=== PATIENT | male | born 1990 | race Two or more races ===

== ENCOUNTER 2016-10-11 20:51 | Emergency (ER) | payer OTHER ==
[2016-10-11] MEDS ORDERED: HYDROmorphONE/DILAUDID 1 MG/ML SYR IVP PRN (20:58)
[2016-10-11] MEDS ORDERED: ONDANSETRON 4 MG/2 ML VIAL IVP PRN (20:58)
--- NOTE | 2016-10-11 21:02 | EDPHY ---
H & P Smoking Status: Former smoker Time Seen by Provider: 10/11/16 20:59 HPI/ROS: HPI: This 25 year old male who presents with Chief Complaint: Right ankle injury Location: Right Ankle Quality: Injury Duration: 30 minutes prior to arrival Signs and Symptoms: Positive swelling, positive deformity, positive pain with weight-bearing, no radiation, no numbness, No weakness Timing: Acute Severity: 10 out 10 Context: Patient was skateboarding and did well 0180 and came down twisting his right ankle. He heard a loud pop and felt immediate pain. Unable to bear weight. Tetanus up-to-date. Modifying Factors: Comment: ROS: Eyes: No blurred vision Respiratory: No shortness of breath, no cough Cardiovascular: No chest pain Gastrointestinal: No nausea, no vomiting no diarrhea Genitourinary: No dysuria Extremities: No myalgias Neurologic: No weakness, no numbness Skin: No rashes Hematologic: No bruising, no bleeding MEDICAL/SURGICAL HISTORY: Finger fracture. Appendectomy. General healthy. Does not take any regular medications. (Cristina Szymanski) Social History: Student. (Cristina Szymanski) Physical Exam: CONSTITUTIONAL: Polite and cooperative white young adult male, awake and alert , no obvious distress HEENT: Atraumatic and normocephalic, PERRL, EOMI. Tympanic membranes clear. . Oropharynx clear, no exudate and moist pink mucosa. Airway patent. No lymphadenopathy. No meningismus. Cardiovascular: Normal S1/S2, regular rate, regular rhythm, without murmur rub or gallop. PULMONARY/CHEST: Symmetrical and nontender. Clear to auscultation bilaterally Good air movement. No accessory muscle usage. ABDOMEN: Soft, nondistended, nontender, no rebound, no guarding, no peritoneal signs, no masses or organomegaly. No CVAT. EXTREMITIES: Dorsalis pedis and pedal tibialis 2/2 pulses, + right significant deformity over tibia; able to wiggle toes; good capillary refill; light touch sensation intact. no clubbing, no cyanosis or edema. NEUROLOGICAL: no focal neuro deficits. GCS 15. SKIN: Warm and dry, no erythema. no rash. Good capillary refill. (Cristina Szymanski) Constitutional: Initial Vital Signs Temperature (C) 37.0 C 10/11/16 20:55 Heart Rate 92 10/11/16 20:55 Respiratory Rate 18 10/11/16 20:55 Blood Pressure 148/64 H 10/11/16 20:55 O2 Sat (%) 95 10/11/16 20:55 O2 Delivery Mode [Post Non-Rebreather Mask Procedure 3rd] O2 Delivery Mode [Post Non-Rebreather Mask Procedure 2nd] O2 Delivery Mode [Post Non-Rebreather Mask Procedure 1st] O2 Delivery Mode [Procedural Non-Rebreather Mask 1st] O2 Delivery Mode Room Air O2 (L/minute) [Post Procedure 15 3rd] O2 (L/minute) [Post Procedure 15 2nd] O2 (L/minute) [Post Procedure 15 1st] O2 (L/minute) [Procedural 1st] 15 O2 (L/minute) 15 Allergies/Adverse Reactions: amoxicillin Allergy (Severe, Verified 05/28/15 16:35) Anaphylaxis Home Medications: Medication Instructions Recorded Albuterol Hfa Anes Only [Proair 2 puffs IH Q4-6PRN PRN #1 mdi 05/28/15 Hfa Icu (*)] Azithromycin [Zithromax tab 250 mg] 250 mg PO DAILY #6 tab 05/28/15 Guaifenesin/Codeine Phosphate 1 - 2 tsp PO Q4-6PRN PRN #120 ml 05/28/15 [Guaifenesin-Codeine Liquid] oxyCODONE/APAP 5/325 [Percocet 1 - 2 tab PO Q4H PRN #10 tab 10/11/16 5/325 (*)] Medical Decision Making - Diagnostics Imaging Results: Imaging Impressions Ankle X-Ray 10/11/16 20:55 Impression: 1. Posterolateral ankle dislocation. 2. Tiny fracture fragments in the region of the posterior malleolus. 3. Displaced angulated distal fibular fracture. Ankle X-Ray 10/11/16 21:50 Impression: 1. Interval reduction of dislocation 2. Tiny avulsion fractures of the medial malleolus. 3. 1 cm residual posterior displacement of an oblique distal fibular diaphyseal fracture with probable avulsion fracture of the lateral malleolus. 4. Additional findings as above. Procedures: Procedure: Procedural sedation. A pre-sedation evaluation was completed on the patient at 2130. Patient is an appropriate candidate for procedural sedation. The risks of the sedation were discussed with the patient. A time out was completed. The patient was sedated with propofol fall and fentanyl. The patient was monitored with continuous pulse oximetry and recreational facilities motel manager. There were no complications and no significant hypoxemia. I remained at the bedside for the sedation. The total time I spent in the procedural sedation was 20 minutes. Procedure: Dislocation reduction. The dislocation of the right ankle was reduced using traction and lateral displacement without complications. Post reduction the patient's neurovascular exam is normal.Post reduction x-ray demonstrates reduction of the joint to the anatomic position. The procedure was performed by myself. Patient placed in a posterior and sugar-tong splint by staff. I reviewed the patient. He is neurologically intact with good capillary refill and good immobility. (Franklin De Leon) ED Course/Re-evaluation: I have discussed with Dr. Dave, orthopedics. He has reviewed the x-rays. He is happy with reduction. Patient will be discharged home and follow up with him on Friday for evaluation for possible surgical repair at that time. (Franklin De Leon) X-rays, IV medication for pain control xray shows dislocation and distal fibula fracture Patient was signed out to Dr. De Leon for reduction, splint and further care. (Cristina Szymanski) Differential Diagnosis: Ankle injury including but not limited to fracture, tendon injury, contusion, muscular strain, and dislocation. (Cristina Szymanski) - Data Points Medications Given: Hydromorphone HCl (Dilaudid) 1 mg IVP Q2HRS PRN PRN Reason: Pain, Severe Unable to Take PO Stop: 10/12/16 00:01 Last Admin: 10/11/16 22:00 Dose: 1 mg Discontinued Medications Sodium Chloride (Ns) 1,000 mls @ 0 mls/hr IV ONCE ONE; Wide Open PRN Reason: Protocol Stop: 10/11/16 21:11 Last Admin: 10/11/16 21:10 Dose: 1,000 mls Sodium Chloride (Ns) 1,000 mls @ 0 mls/hr IV ONCE ONE PRN Reason: Wide Open Stop: 10/11/16 22:03 Last Admin: 10/11/16 22:03 Dose: 1,000 mls Propofol (Diprivan) 40 mg IVP EDNOW ONE Stop: 10/11/16 21:11 Last Admin: 10/11/16 22:01 Dose: 200 mg Departure - Departure Disposition: Home, Routine, Self-Care Clinical Impression: Dislocation of right ankle joint, initial encounter Fracture of fibula, distal, right, closed Qualifiers: Encounter type: initial encounter Fracture morphology: other fracture Qualified Code(s): S82.831A - Other fracture of upper and lower end of right fibula, initial encounter for closed fracture Condition: Fair Instructions: Ankle Fracture (ED), Ankle Dislocation (ED), RICE Therapy (ED) Additional Instructions: Keep your ankle elevated to the level of your heart as much as possible. You are to be nonweightbearing at all times. Apply ice for 15-20 minutes every 2-3 hours. Follow up with Dr. Dave on Friday for planning of surgical repair. Return emergency depart for increasing pain, numbness, tingling, fevers, chills , or any other concerns. Referrals: Patient,NotPresent [Primary Care Provider] - As per Instructions Prescriptions: oxyCODONE/APAP 5/325 [Percocet 5/325 (*)] 1 - 2 tab PO Q4H PRN #10 tab PRN Reason: Pain, Severe
[2016-10-11 21:03] VITALS: RESP 18
[2016-10-11] MEDS ORDERED: NS 1,000 ML IV ONE ×2 (21:10→22:02)
[2016-10-11] MEDS ORDERED: PROPOFOL 200 MG/20 ML VIAL IVP ONE (21:10)
[2016-10-11] MEDS ORDERED: fentaNYL 100 MCG/2 ML INJ ONE (21:15)
[2016-10-11] MEDS ORDERED: OXYCODONE/APAP 5/325MG PREPACK#4 BTL TAKEHOME ONE (22:41)
[2016-10-11 23:15] VITALS: BP 141/83; PULSE 69; TEMP 98.6; O2SAT 99
[2016-10-11] MEDS ORDERED: OXYCODONE/APAP 5/325 TAB PO ONE (23:26)
[2016-10-11] MEDS ORDERED: IBUPROFEN 600 MG TAB PO ONE (23:26)
== END 2016-10-11 23:38 | disposition home or self-care (01) ==
LOC: EDUNIT#
PROC: 0QSJXZZ Reposition Right Fibula, External Approach (ICD-10-PCS; principal; 2016-10-11)
DX: S82.831A Other fracture of upper and lower end of right fibula, initial encounter for closed fracture (principal); Z87.891 Personal history of nicotine dependence; X58.XXXA Exposure to other specified factors, initial encounter; Y99.8 Other external cause status; Y93.51 Activity, roller skating (inline) and skateboarding
CPT/HCPCS: 96374; J1170; J2704; J3010

== ENCOUNTER 2016-10-20 08:15 | Emergency (ER) | payer OTHER ==
[2016-10-20 08:22] VITALS: BP 129/81; PULSE 81; TEMP 97.7; O2SAT 95
[2016-10-20] MEDS ORDERED: LORazepam 2 MG/ML INJ IM ONE (08:43)
--- NOTE | 2016-10-20 08:44 | EDPHY ---
H & P Stated Complaint: pain control issues, ran out of percocet, tramadol not working Time Seen by Provider: 10/20/16 08:41 HPI/ROS: HPI: This is a 25-year-old male who presents with Chief Complaint: Uncontrolled Right ankle pain Location: Right ankle Quality: Pain Duration: 1 week Signs and Symptoms: No numbness, no radiation, no tingling, no swelling, no change of skin color Timing: Daily, intermittent Severity: Moderate Context: Patient was in our emergency on October 11, 2016 with a right ankle joint dislocation and closed fracture of the distal end of the right fibula status post this skateboarding accident. He was reduced in the ER and placed in a splint and given Percocet #10. He followed up with Dr. Scott on September in the office and given a prescription for Ultram; patient never filled this as "it does not work." He had ORIF surgery on October 16, 2016 outpatient and given Percocet # 40. He ran out of Percocet today and orthopedics office is closed on a Friday. After further questioning, patient admits that he feels extremely anxious and has a history of it but has not seen a therapist or put been placed on a psychiatric medication regimen. He lives with his girlfriend, works from home. His family lives in [place] and is unable to help. Patient does have pain; but begrudgingly admits that it has improved since surgery. Primary care provider is Caroline Little. Modifying Factors: Comment: ROS: Constitutional: No fever, no chills, no weight loss Eyes: No blurred vision Respiratory: No shortness of breath, no cough Cardiovascular: No chest pain Gastrointestinal: No nausea, no vomiting no diarrhea Genitourinary: No dysuria Extremities: No myalgias Neurologic: No weakness, no numbness Skin: No rashes Hematologic: No bruising, no bleeding Source: Patient Exam Limitations: No limitations - Personal History Current Tetanus/Diphtheria Vaccine: Yes Current Tetanus Diphtheria and Acellular Pertussis (TDAP): Yes Tetanus Vaccine Date: within 10 years - Medical/Surgical History Hx Asthma: No Hx Chronic Respiratory Disease: No Hx Diabetes: No Hx Cardiac Disease: No Hx Renal Disease: No Hx Cirrhosis: No Hx Alcoholism: No Hx HIV/AIDS: No Hx Splenectomy or Spleen Trauma: No Other PMH: Anxiety - Social History Smoking Status: Former smoker - Physical Exam Exam: CONSTITUTIONAL: Extremely anxious and tearful young adult male, awake and alert , no obvious distress HEENT: Atraumatic and normocephalic, PERRL, EOMI. Tympanic membranes clear. . Oropharynx clear, no exudate and moist pink mucosa. Airway patent. No lymphadenopathy. No meningismus. Cardiovascular: Normal S1/S2, regular rate, regular rhythm, without murmur rub or gallop. PULMONARY/CHEST: Symmetrical and nontender. Clear to auscultation bilaterally Good air movement. No accessory muscle usage. ABDOMEN: Soft, nondistended, nontender, no rebound, no guarding, no peritoneal signs, no masses or organomegaly. No CVAT. EXTREMITIES: 2/2 pulses, no deformities, no clubbing, no cyanosis or edema. Right lower leg shows short-leg cast present; toes are exposed to warm to touch ; good capillary refill; light touch sensation intact. Right knee full extension to 180 flexion to 120; no effusion; no joint line tenderness. I took off the surrounding Bakari wrap and Kerlix and palpated on the inside of the cast; skin is soft; warm to touch; no pain with palpation. NEUROLOGICAL: no focal neuro deficits. GCS 15. SKIN: Warm and dry, no erythema. no rash. Good capillary refill. Constitutional: Initial Vital Signs Temperature (C) 36.5 C 10/20/16 08:18 Heart Rate 81 10/20/16 08:18 Blood Pressure 129/81 H 10/20/16 08:18 O2 Sat (%) 95 10/20/16 08:18 O2 Delivery Mode Room Air Allergies/Adverse Reactions: amoxicillin Allergy (Severe, Verified 10/20/16 08:17) Anaphylaxis Home Medications: Medication Instructions Recorded Albuterol Hfa Anes Only [Proair 2 puffs IH Q4-6PRN PRN #1 mdi 05/28/15 Hfa Icu (*)] Azithromycin [Zithromax tab 250 mg] 250 mg PO DAILY #6 tab 05/28/15 Guaifenesin/Codeine Phosphate 1 - 2 tsp PO Q4-6PRN PRN #120 ml 05/28/15 [Guaifenesin-Codeine Liquid] oxyCODONE/APAP 5/325 [Percocet 1 - 2 tab PO Q4H PRN #10 tab 10/11/16 5/325 (*)] hydrOXYzine HCL [Hydroxyzine HCl] 50 mg PO BID PRN #12 tablet 10/20/16 traMADol 10/20/16 Medical Decision Making ED Course/Re-evaluation: No signs of neurovascular compromise/compartment syndrome Based on the number of tabs of Percocet that patient filled and instructions on the prescription; if patient is taking 1-2 tabs every 4 hours; it is consistent that he would be out of the medication today. I suspect this is more anxiety related, poor coping mechanisms and lack of support; egg caser consult Patient given Ativan in the ER with moderate relief. I explained to him that the ER will not prescribe chronic benzodiazepine medications; he will follow up with his primary care provider. He is to keep his follow-up appointment with Dr. Scott is planned. Advised him that he needs to start taking ibuprofen as well as the tramadol. And he may start to take hydroxyzine twice a day as needed for anxiety until he is seen by his primary care provider. Differential Diagnosis: Differential diagnosis includes but is not limited to ischemia; compartment syndrome; uncontrolled pain; anxiety. Departure - Departure Disposition: Home, Routine, Self-Care Clinical Impression: Status post surgical manipulation of ankle joint, Status post open reduction with internal fixation of fracture, Anxiety Condition: Good Instructions: RICE Therapy (ED), Ankle Fracture (ED), Ankle Dislocation (ED) Additional Instructions: Call primary care provider, Caroline Little, on Friday and make an appointment to be seen as soon as possible to discuss depression and anxiety Referrals: Gil Scott MD [Medical Doctor] - 1-2 days without fail (Call for follow- up appointment. ) Prescriptions: hydrOXYzine HCL [Hydroxyzine HCl] 50 mg PO BID PRN #12 tablet PRN Reason: Anxiety
[2016-10-20] MEDS ORDERED: LORazepam 1 MG TAB PO ONE (08:46)
[2016-10-20] MEDS ORDERED: OXYCODONE/APAP 5/325 TAB PO ONE (09:35)
--- NOTE | 2016-10-20 15:18 | ASDISCHSUM ---
Discharge Information Plan Status:Home with No Needs Medically Cleared to Leave:10/20/2016 Discharge Date:10/20/2016 09:52 AM CM D/C Disposition:Home, Routine, Self-Care ADT D/C Disposition:Home, Routine, Self-Care Projected Discharge Date:10/20/2016 09:52 AM Transportation at D/C:Friend Discharge Delay Reason: Follow-Up Date:10/20/2016 09:52 AM Discharge Slot: Final Diagnosis: Placement Information Patient Contact Information Contact Name:NORRISNONE Relationship: Address: Home Phone: Work Phone: City: Alternate Phone: State/[employer] Code: Email: Financial Information Financial Class:HMO and PPO Plans Primary Plan Desc:[employer] Primary Plan Number:[id number] Secondary Plan Desc: Secondary Plan Number: Assessment Information Intervention Information
== END 2016-10-20 09:52 | disposition home or self-care (01) ==
DX: F41.9 Anxiety disorder, unspecified (principal); Z87.81 Personal history of (healed) traumatic fracture; Z87.891 Personal history of nicotine dependence; Z96.661 Presence of right artificial ankle joint

== ENCOUNTER 2016-11-04 01:46 | Inpatient (IN) | payer OTHER ==
--- NOTE | 2016-11-04 01:50 | EDPHY ---
H & P HPI/ROS: HPI CHIEF COMPLAINT: Altered mental status HISTORY OF PRESENT ILLNESS: This patient 26-year-old male, who presents emergency room by private vehicle with his girlfriend for altered mental status. Reported by his girlfriend that over the past 2 days he has had persistent nausea vomiting diarrhea. He has been on long course of narcotic pain medicine for recent ankle fracture dislocation. He initially was prescribed 40 tabs of narcotic hydrocodone and went through all 40 tabs. He then had surgery on his ankle and got another 40 tabs. He is now went through close to 40 of them his girlfriend thinks he may have 10-15 left. Abruptly 4 days ago to 5 days ago stop taking his narcotic pain medicine. He took 1 dose over the past few days possibly a dose a day. He now presents emergency room dripping severe diaphoresis, with persistent nausea vomiting. He states for the past 2 days he has been in bed rather ill, persistent nausea vomiting. Denies any abdominal pain. He now presents emergency room confused. Patient denies drug use. Alcohol use. Denies taking any [id number] medications. Denies trauma. Denies fever. Distally patient reports taking tramadol. Past Medical History: Denies significant medical history Past Surgical History: Recent right ankle surgery Social History: Denies alcohol or drugs. Occasional marijuana Family History: Noncontributory ROS REVIEW OF SYSTEMS: A comprehensive 10 point review of systems is otherwise negative aside from elements mentioned in the history of present illness. Exam Constitutional confused, alert and oriented x2, diaphoretic, triage nursing summary reviewed, vital signs reviewed, awake/alert. Eyes normal conjunctivae and sclera, EOMI, PERRLA. Pupils are 6 mm equal minimally reactive to light. HENT normal inspection, atraumatic, moist mucus membranes, no epistaxis, neck supple/ no meningismus, no raccoon eyes. Respiratory clear to auscultation bilaterally, normal breath sounds, no respiratory distress, no wheezing. Cardiovascular rate normal, regular rhythm, no murmur, no edema, distal pulses normal. Gastrointestinal soft, non-tender, no rebound, no guarding, normal bowel sounds, no distension, no pulsatile mass. Genitourinary no CVA tenderness. Musculoskeletal no midline vertebral tenderness, full range of motion, no calf swelling, no tenderness of extremities, no meningismus, good pulses, neurovascularly intact. Skin diaphoretic. Neurologic no rigidity, no clonus, no stiffness, awake, alert and oriented x 2 , AAOx2, moves all 4 extremities equally, motor intact, sensory intact, CN II- XII intact, normal cerebellar, normal vision, normal speech. Psychiatric normal mood/affect. Heme/Lymph/Immune no lymphadenopathy. Differential Diagnosis: Includes but is not limited to in a particular order drug toxication, opiate withdrawal, severe electrolyte disturbance, severe dehydration, drug toxicity, drug overdose, intracranial bleed, stroke, serotonin syndrome Medical Decision Making: Plan for this patient he is confused, severely diuretic, most likely going through significant opiate withdrawal. Proceed with IV establishment with blood work, check blood work, gentle IV hydration until I know his sodium level, CT scan head without contrast for altered mental status, EKG, tox labs, Tylenol, salicylate, alcohol, drug screen Re-evaluation: EKG interpretation by me on record in [employer] system. Impression time of EKG 2:17 a.m., this is sinus rhythm rate of 57 abnormal T-waves in V1 V2 V3 V4 V5 V6. T-wave abnormality to [address] depression to [address] scan of the the head without IV contrast The results of the study are negative for acute traumatic injury or bleed or stroke. The study was read by Dr. Young I viewed the images myself on the PACS system. 0235AM: Spoke with girlfriend at bedside for extensive period of time. She reports over the past 48 hours he has been having persistent vomiting. Very visual dreams. Almost to the point that he is hallucinating. Also has had diarrhea. Abruptly stopped his opiates 4-5 days ago. Has been taking tramadol. Exam here I do not appreciate any signs of serotonin syndrome he is not tachycardic he is not hypertensive he is not rigid he does not have clonus. However he does have diaphoresis and large pupils. Piloerection on exam. 0407AM: Re-examination this time. He is not vomiting. His diaphoresis has resolved. He denies any complaints specifically denies neck pain or headache. Denies stiff neck. Denies abdominal pain chest pain or shortness of breath. However re-examination he still very confused. He tells me the date is 1975. He is unable to identify the present. Girlfriend at bedside states that this is not him. He has a nonfocal neurological exam except for confusion. Reviewed given to a conversation with him he starts getting off topic in talks about things that do not make sense. There is no jumbled words. There is no mumbling. He just does not make sense. I do not feel that he needs a lumbar puncture. He has no evidence of meningitis. He has no stiff neck no fever no headache. He otherwise appears well. He does tell me that the president is "orange" but cannot identify the name. At this time I do not have a great reason for his encephalopathy. Will be admitted to the hospital for altered mental status most likely opiate withdrawal and encephalopathy. No evidence this patient has an active infection. 0454: Patient's drug screen positive for cocaine, benzos and marijuana. This most likely explanation of his symptoms and confusion. I did ask about drugs multiple times when he arrived here in states that he denies drugs. However now he admits to doing cocaine Friday. He was still be admitted for altered mental status polysubstance abuse encephalopathy dehydration. Source: Patient - Personal History Tetanus Vaccine Date: within 10 years - Medical/Surgical History Hx Asthma: No Hx Chronic Respiratory Disease: No Hx Diabetes: No Hx Cardiac Disease: No Hx Renal Disease: No Hx Cirrhosis: No Hx Alcoholism: No Hx HIV/AIDS: No Hx Splenectomy or Spleen Trauma: No Other PMH: Anxiety - Social History Smoking Status: Former smoker Constitutional: Initial Vital Signs Temperature (C) 37.1 C 11/04/16 02:01 Heart Rate 80 11/04/16 02:01 Respiratory Rate 16 11/04/16 02:01 Blood Pressure 130/93 H 11/04/16 02:01 O2 Sat (%) 96 11/04/16 02:01 O2 Delivery Mode Room Air Allergies/Adverse Reactions: amoxicillin Allergy (Severe, Verified 11/04/16 02:03) Anaphylaxis Home Medications: Medication Instructions Recorded hydrOXYzine HCL [Hydroxyzine HCl] 50 mg PO BID PRN #12 tablet 10/20/16 traMADol [Ultram 50 mg (*)] 50 mg PO Q4 PRN 10/20/16 Ondansetron HCl [Zofran] 4 mg PO Q6H PRN 11/04/16 oxyCODONE IR [Oxycodone Ir (*)] 5 - 10 mg PO Q4-6PRN PRN 11/04/16 Medical Decision Making - Data Points Laboratory Results: Laboratory Results 11/04/16 02:00 11/04/16 02:00 Medications Given: Sodium Chloride (Ns) 1,000 mls @ 150 mls/hr IV CONT REMA Stop: 05/03/17 03:44 Last Admin: 11/04/16 17:20 Dose: 1,000 mls Lorazepam (Ativan Injection) 1 mg IVP Q6 PRN PRN Reason: Agitation Stop: 05/03/17 05:01 Last Admin: 11/04/16 11:05 Dose: 1 mg Lorazepam (Ativan) 1 mg PO Q4HRS PRN PRN Reason: Anxiety, Able to Take PO Stop: 05/03/17 16:58 Last Admin: 11/04/16 22:30 Dose: 1 mg Ondansetron HCl (Zofran) 4 mg IVP Q4HRS PRN PRN Reason: Nausea/Vomiting, Can't Take PO Stop: 05/03/17 03:29 Last Admin: 11/04/16 12:34 Dose: 4 mg Discontinued Medications Sodium Chloride (Ns) 1,000 mls @ 0 mls/hr IV EDNOW ONE; Wide Open PRN Reason: Protocol Stop: 11/04/16 02:03 Last Admin: 11/04/16 02:05 Dose: 1,000 mls Sodium Chloride (Ns) 1,000 mls @ 0 mls/hr IV ONCE ONE PRN Reason: Wide Open Stop: 11/04/16 04:04 Last Admin: 11/04/16 04:06 Dose: 1,000 mls Magnesium Sulfate (Magnesium Sulf 2 Gm (Premix)) 50 mls @ 50 mls/hr IV ONCE ONE Stop: 11/04/16 05:03 Last Admin: 11/04/16 04:46 Dose: 50 mls Ondansetron HCl (Zofran) 4 mg IVP EDNOW ONE Stop: 11/04/16 02:03 Last Admin: 11/04/16 02:14 Dose: 4 mg Departure - Departure Disposition: [facility] Clinical Impression: Dehydration, Opiate withdrawal, Encephalopathy acute, Polysubstance abuse Altered mental status Qualifiers: Altered mental status type: unspecified Qualified Code(s): R41.82 - Altered mental status, unspecified Condition: Fair
[2016-11-04] MEDS ORDERED: NS 1,000 ML IV ONE ×2 (02:02→04:03)
[2016-11-04] MEDS ORDERED: ONDANSETRON 4 MG/2 ML VIAL IVP ONE (02:02)
--- NOTE | 2016-11-04 02:19 | CPEKG ---
Heart Rate: 57 RR Interval: 1053 P-R Interval: 132 QRSD Interval: 106 QT Interval: 492 QTC Interval: 479 P [place]: 80 QRS [place]: 75 T Wave [place]: -85 EKG Severity - ABNORMAL ECG - EKG Impression: SINUS RHYTHM EKG Impression: PROBABLE LVH WITH SECONDARY REPOL ABNRM EKG Impression: INFERIOR Q WAVES, PROBABLY NORMAL VARIATION EKG Impression: ABNORMAL T, PROBABLE ISCHEMIA, WIDESPREAD EKG Impression: BORDERLINE PROLONGED QT INTERVAL Electronically Signed By: Arie Wang 04-Nov-2016 07:00:51
[2016-11-04 02:23] LABS: % IMMATURE GRANULYOCYTES 0.2 % (0.0-1.1); ABSOLUTE IMMATURE GRANULOCYTES 0.03 10^3/uL (0.00-0.10); ADD DIFF? NO; ADD MORPH? NO; ADD SCAN? NO; ATYPICAL LYMPHOCYTE FLAG 0 (0-99); FRAGMENT RBC FLAG 0 (0-99); HEMATOCRIT 46.8 % (40.0-51.0); HEMOGLOBIN 16.8 g/dL (13.7-17.5); LEFT SHIFT FLG 0 (0-99); LIPEMIA HEMOLYSIS FLAG 90 (0-99); MEAN CELL HEMOGLOBIN 30.6 pg (27.9-34.1); MEAN CELL HEMOGLOBIN CONCENTR. 35.9 g/dL (32.4-36.7); MEAN CELL VOLUME 85.2 fL (81.5-99.8); MEAN PLATELET VOLUME 9.4 fL (8.7-11.7); PLATELET CLUMPS FLAG 30 (0-99); PLATELET COUNT 495 10^3/uL (150-400); RED BLOOD CELL COUNT 5.49 10^6/uL (4.40-6.38); RED CELL DISTRIBUTION WIDTH 12.1 % (11.5-15.2)
[2016-11-04 02:36] LABS: ALANINE AMINOTRANSFERASE 33 IU/L (21-72); ALBUMIN 5.2 g/dL (3.5-5.0); ALKALINE PHOSPHATASE 83 IU/L (38-126); ANION GAP 22 mEq/L (8-16); ASPARTATE AMINOTRANSFERASE 34 IU/L (17-59); BILIRUBIN,TOTAL 1.5 mg/dL (0.1-1.4); BILIRUBIN-CONJUGATED 0.3 mg/dL (0.0-0.5); BILIRUBIN-UNCONJUGATED 1.2 mg/dL (0.0-1.1); CALCIUM 11.4 mg/dL (8.5-10.4); CARBON DIOXIDE 19 mEq/l (22-31); CHLORIDE 102 mEq/L (97-110); CREATININE 1.4 mg/dL (0.7-1.3); ETHANOL SERUM < 10 mg/dL (0-10); GLOMERULAR FILTRATION RATE > 60; GLUCOSE 138 mg/dL (70-100); POTASSIUM 3.7 mEq/L (3.5-5.2); SALICYLATE < 1.0 mg/dL (2.0-20.0); SODIUM 143 mEq/L (134-144); TOTAL PROTEIN 9.2 g/dL (6.3-8.2)
[2016-11-04] MEDS ORDERED: ACETAMINOPHEN 325 MG TAB PO PRN (03:30)
[2016-11-04] MEDS ORDERED: ONDANSETRON 4 MG/2 ML VIAL IVP PRN (03:30)
[2016-11-04] MEDS ORDERED: ONDANSETRON DISINTEGRATING 4 MG TAB PO PRN (03:30)
[2016-11-04 03:39] LABS: MAGNESIUM 1.5 mg/dL (1.6-2.3)
[2016-11-04 03:50] LABS: TROPONIN I < 0.012 ng/mL (0.000-0.034)
[2016-11-04] MEDS ORDERED: MAGNESIUM SULF 2 GM/WATER 50 ML IV ONE (04:04)
[2016-11-04] MEDS ORDERED: PROTOCOL MAGNESIUM 1 DOSE IV PRN (04:05)
[2016-11-04 04:37] LABS: COLOR YELLOW; LEUKOCYTE ESTERASE,URINE NEGATIVE (NEGATIVE); NITRITE,URINE NEGATIVE (NEGATIVE)
[2016-11-04 04:43] LABS: MUCUS TRACE /lpf (NONE-1+)
[2016-11-04] MEDS ORDERED: LORazepam 2 MG/ML INJ IVP PRN (05:02)
--- NOTE | 2016-11-04 05:42 | GHP ---
[f rep st] HISTORY AND PHYSICAL DATE OF ADMISSION: 11/04/2016 CHIEF COMPLAINT: Acute encephalopathy. HISTORY OF PRESENT ILLNESS: A 26-year-old male with a past medical history of anxiety and depression, who was brought in by his girlfriend with confusion. She was concerned it had something to do with his abrupt stop of pain medications. He was seen in the ER on 10/11/2016, with a right ankle dislocation that was reduced. At that time, he was prescribed 40 of Percocet. He underwent ORIF on 10/[address] Scott. He was refilled a prescription for Percocet and tramadol the Friday before weekend. It is unclear how many he has been taking, but he has taken none in the last 2 days. He began having vomiting on Friday morning, felt hot and sick. Friday evening, he was doing okay, ate a sandwich. He developed some diarrhea earlier that day. On Friday, his girlfriend was at work and gone all day, but roommate said he was acting weird and throwing up all day. Here, in the emergency room, he denies any alcohol or illicit drug use. No fevers. No chest pain, no shortness of breath. No headaches, no vision changes. REVIEW OF SYSTEMS: I completed a 10-point review of systems and negative, except as noted in HPI. PAST MEDICAL HISTORY: Anxiety and depression, not treated. PAST SURGICAL HISTORY: ORIF of right ankle 10/16/2016. Also, appendectomy. SOCIAL HISTORY: Lives in [place] with his girlfriend. Admits to smoking marijuana. No alcohol. No tobacco. Denied other illicits during my interview. FAMILY HISTORY: No coronary artery disease. No sudden cardiac . MEDICATIONS: Tramadol, Percocet, last taken 2 days ago, hydroxyzine. ALLERGIES: Amoxicillin, anaphylaxis. PHYSICAL EXAMINATION: Temperature 37.1, blood pressure 142/79, heart rate 60, respirations 16, 97% on room air. GENERAL: Well-appearing male, who is sitting up on bed, no acute distress, smiling. HEENT: Dilated pupils, but reactive. EOMI. Oropharynx clear. No exudate or erythema. CV is regular. No murmurs, gallops, or rubs. LUNGS: Clear. No crackles. Abdomen is soft, nontender, nondistended. Positive bowel sounds. : No suprapubic tenderness. MUSCULOSKELETAL: Right ankle incision is clean, dry, healing well. No evidence of infection. NEUROLOGIC: 2 through 12 intact. Following commands. PSYCHIATRIC: Tangential, not answering questions appropriately. Alert to sitting only, not date, year. LABS: WBC is 13, hemoglobin 16, hematocrit 40, platelets 495. Sodium 143, potassium 3.7, chloride 102, carbon dioxide 22, anion gap 22, creatinine is 1.4 , glucose 138, calcium is 11.4. Mag is 1.5. Total bilirubin is 1.5. Troponin less than 0.012. Total protein is 9.2, albumin is 5.2, lipase 75. Lactate was 4.6, now 1.6. Negative UA. Urine tox positive for benzos, cocaine, marijuana. Negative salicylate and Tylenol. CT head: Negative for acute bleed. Chest x-ray: Good expansion. No evidence of effusion or opacity. EKG is personally reviewed by me. Diffuse ST depression with re-polar abnormalities. ASSESSMENT AND PLAN: 1. Acute toxic encephalopathy: due to cocaine and benzodiazepine ingestion. After repeat interview, he said he used on Friday night. No evidence of infection. He is afebrile. 2. Polysubstance abuse: Positive for marijuana/ benzos/ cocaine. The patient was counseled on cessation. He will be monitored on telemetry to ensure no arrhythmia. 3. Acute kidney injury: Secondary to dehydration with vomiting, diarrhea, as well as cocaine ingestion. Hydrate and repeat. CK pending. 4. Lactic acidosis secondary to diarrhea, dehydration, and cocaine ingestion. Resolved with IV fluids. 5. Leukocytosis, likely due to stress inflammation. UA is negative. No evidence of pneumonia. Afebrile. 6.Hypomagnesium: on protocol 7. Right ankle fracture: Status post surgery 10/16. Healing well. 8. Abnormal EKG: diffuse ST depressions with repol changes. Negative trop, no CP. Due to cocaine. 8. Deep venous thrombosis prophylaxis: Low risk. DIET: Regular. DISPOSITION: The patient warrants observation admission, given acute toxic encephalopathy requiring telemetry to ensure no arrhythmia. /[id number]/MODL MTDD
[2016-11-04 06:53] LABS: HEMATOCRIT 38.4 % (40.0-51.0); HEMOGLOBIN 13.5 g/dL (13.7-17.5); MEAN CELL HEMOGLOBIN 30.4 pg (27.9-34.1); MEAN CELL HEMOGLOBIN CONCENTR. 35.2 g/dL (32.4-36.7); MEAN CELL VOLUME 86.5 fL (81.5-99.8); RED BLOOD CELL COUNT 4.44 10^6/uL (4.40-6.38); RED CELL DISTRIBUTION WIDTH 12.3 % (11.5-15.2)
[2016-11-04 07:17] LABS: ALANINE AMINOTRANSFERASE 29 IU/L (21-72); ALKALINE PHOSPHATASE 62 IU/L (38-126); ANION GAP 15 mEq/L (8-16); ASPARTATE AMINOTRANSFERASE 22 IU/L (17-59); CALCIUM 9.4 mg/dL (8.5-10.4); CARBON DIOXIDE 19 mEq/l (22-31); CHLORIDE 109 mEq/L (97-110); CREATININE 1.2 mg/dL (0.7-1.3); GLOMERULAR FILTRATION RATE > 60; GLUCOSE 124 mg/dL (70-100); MAGNESIUM 3.9 mg/dL (1.6-2.3); POTASSIUM 3.8 mEq/L (3.5-5.2); SODIUM 143 mEq/L (134-144); TOTAL PROTEIN 6.7 g/dL (6.3-8.2)
--- NOTE | 2016-11-04 08:37 | CPEKG ---
Heart Rate: 57 RR Interval: 1053 P-R Interval: 128 QRSD Interval: 90 QT Interval: 472 QTC Interval: 460 P Brickeys: 68 QRS Brickeys: 75 T Wave Brickeys: -75 EKG Severity - ABNORMAL ECG - EKG Impression: SINUS RHYTHM EKG Impression: PROBABLE LEFT VENTRICULAR HYPERTROPHY EKG Impression: INFERIOR Q WAVES, PROBABLY NORMAL VARIATION EKG Impression: ABNORMAL T, PROBABLE ISCHEMIA, WIDESPREAD Electronically Signed By: Fabiola Suero 04-Nov-2016 08:51:48
[2016-11-04] MEDS: NS 1,000 ML IV SCH ×2 (09:06→17:20)
[2016-11-04 09:21] LABS: ANION GAP 12 mEq/L (8-16); CALCIUM 9.8 mg/dL (8.5-10.4); CARBON DIOXIDE 22 mEq/l (22-31); CHLORIDE 108 mEq/L (97-110); CREATININE 1.3 mg/dL (0.7-1.3); GLOMERULAR FILTRATION RATE > 60; GLUCOSE 114 mg/dL (70-100); POTASSIUM 4.3 mEq/L (3.5-5.2); SODIUM 142 mEq/L (134-144)
--- NOTE | 2016-11-04 16:58 | HOSPPROG ---
Hospitalist Progress Note Assessment/Plan: # acute toxic encephalopathy- suspected secondary to polysubstance abuse and withdrawal Urine drug screen positive for cocaine, marijuana, benzodiazepine - known recent use of higher dose narcotics telemetry (personally reviewed and interpreted) sinus rhythm 80s to 90s- oxygen saturations 95% on room air - continue close monitoring - p.r.n. Ativan for agitation # polysubstance abuse- can not meaningfully discussed with the patient at this time is remains quite encephalopathic - case management consultation after clears # acute kidney injury- presumed secondary to dehydration Creatinine 1.4 at presentation - continue IV fluids - recheck in a.m. # subacute right ankle dislocation- status post surgical intervention - nonweightbearing on his right foot - boot in place - avoiding pain medications as able # prophylaxis Lovenox # diet regular # disposition greater than 2 midnights as requiring high-level monitoring and supportive care I have discussed the case with the RN we will continue with sitter support and p.r.n. benzodiazepines for agitation Subjective: Denies pain Objective: Vital Signs Temp Pulse Resp BP Pulse Ox 36.7 C 76 17 91/64 L 95 11/04/16 07:53 11/04/16 16:07 11/04/16 16:07 11/04/16 16:07 11/04/16 16:07 Laboratory Results 11/04/16 06:35 11/04/16 08:44 11/03/16 11/04/16 11/05/16 05:59 05:59 05:59 Intake Total 2500 Output Total 1250 Balance 1250 - Physical Exam Constitutional: appears nourished Eyes: anicteric sclera Ears, Nose, Mouth, Throat: dry mucous membranes Cardiovascular: regular rate and rhythym Respiratory: no respiratory distress, no rales or rhonchi Gastrointestinal: normoactive bowel sounds Genitourinary: no bladder fullness Skin: warm Musculoskeletal: other (Right foot in a boot) Neurologic: No AAOx3 Psychiatric: encephalopathic Lymph, Heme, Immunologic: no cervical LAD ICD10 Worksheet Patient Problems: Problems Problem Status Onset Altered mental status Acute Dehydration Acute Encephalopathy acute Acute Opiate withdrawal Acute Polysubstance abuse Acute
--- NOTE | 2016-11-04 17:03 | ASMTCMCOM ---
CM Note CM Note Notes: C/M consult requested for pt once he clears. He is currently encephalopathic due to suspect polysubstance abuse. C/M to follow. Date Signed: 11/04/2016 05:03 PM Electronically Signed By:Kylie Gamboa LCSW
[2016-11-04] MEDS: LORazepam 1 MG TAB PO PRN ×2 (17:18→22:30)
[2016-11-05 04:57] LABS: ANION GAP 11 mEq/L (8-16); CALCIUM 9.5 mg/dL (8.5-10.4); CARBON DIOXIDE 18 mEq/l (22-31); CHLORIDE 111 mEq/L (97-110); CREATININE 1.5 mg/dL (0.7-1.3); GLOMERULAR FILTRATION RATE 57; GLUCOSE 102 mg/dL (70-100); MAGNESIUM 2.1 mg/dL (1.6-2.3); POTASSIUM 3.5 mEq/L (3.5-5.2); SODIUM 140 mEq/L (134-144)
[2016-11-05] MEDS: NS 1,000 ML IV SCH (09:52)
--- NOTE | 2016-11-05 11:51 | PDCONSULT ---
[employer] Hand Note: Assessment/Plan: JOYA: Pt likely has some ATN, in setting of volume loss with N/V/D prior to presentation, possibly also vasospasms from cocaine use. Renal US with no concerning findings. - Will recheck UA, urine sodium, urine Cr, urine protein, urine eos. - No need for HD. - Will change IVFs to 1/2NS. - Avoid hypotension, MOM, morphine, demerol, contrast, aminoglycosides, fleets , NSAIDs, ACEI/ARBs, and other nephrotoxins. - Will continue to monitor. Metabolic acidosis: likely due to JOYA, will continue to monitor for now. Hypokalemia: K 3.5, will give a KCl 20meq x1 and continue to monitor. Thank you for the interesting consult. Nephrology will continue to follow, please call if you have any additional questions or concerns. H & P Stated Complaint: AMS HPI/ROS: HPI: Mr. Friedman is a 26 yo M with h/o anxiety who presented yesterday with confusion. He had a R ankle dislocated end of last month and then underwent ORIF on 10/16. He refilled a script for Percocet and tramadol before weekend and ran out two days before his presentation this time, unclear how much he had been taking before that, also was taking something for anxiety. He also had recent cocaine use, whick pt admits to and also is UDS positive for cocaine. He had some N/V/D on Friday but seemed to improve, but then again worsened on Friday. His Cr on presentation was 1.4, got IVFs and seemed to initially improve but then Cr up to 1.5 today, prompting consultation. Pt denies any N/V/D currently, feels fine except for ankle pain. ROS: Positive per HPI, rest of 10-point ROS negative - Personal History Current Tetanus/Diphtheria Vaccine: Yes Current Tetanus Diphtheria and Acellular Pertussis (TDAP): Yes Tetanus Vaccine Date: within 10 years - Medical/Surgical History Hx Asthma: No Hx Chronic Respiratory Disease: No Hx Diabetes: No Hx Cardiac Disease: No Hx Renal Disease: No Hx Cirrhosis: No Hx Alcoholism: No Hx HIV/AIDS: No Hx Splenectomy or Spleen Trauma: No Other PMH: Anxiety - Family History Significant Family History: No: Renal disease - Social History Smoking Status: Former smoker Drug Use: Cocaine - Physical Exam Exam: General: alert and oriented, no acute distress Eyes; EOMI, PERRL OP: Clear, MMM Neck: supple, no thyromegaly CV: RRR, +2/4 radial and dorsalis pedis pulses, no peripheral edema Resp: CTA bilat, nonlabored respirations on RA Abd: Soft, NT/ND Neuro: CN II-XII grossly intact, no asterixis Psych: cooperative appropriate mood and affect Skin: C/D/I, no rash Constitutional: Initial Vital Signs Temperature (C) 37.1 C 11/04/16 02:01 Heart Rate 80 11/04/16 02:01 Respiratory Rate 16 11/04/16 02:01 Blood Pressure 130/93 H 11/04/16 02:01 O2 Sat (%) 96 11/04/16 02:01 O2 Delivery Mode Room Air Allergies/Adverse Reactions: amoxicillin Allergy (Severe, Verified 11/04/16 02:03) Anaphylaxis Home Medications: Medication Instructions Recorded hydrOXYzine HCL [Hydroxyzine HCl] 50 mg PO BID PRN #12 tablet 10/20/16 traMADol [Ultram 50 mg (*)] 50 mg PO Q4 PRN 10/20/16 Ondansetron HCl [Zofran] 4 mg PO Q6H PRN 11/04/16 oxyCODONE IR [Oxycodone Ir (*)] 5 - 10 mg PO Q4-6PRN PRN 11/04/16 Lab and Imaging 11/04/16 06:35 11/05/16 03:47 WBC 10.08 10^3/uL (3.80-9.50) H 11/04/16 06:35 RBC 4.44 10^6/uL (4.40-6.38) 11/04/16 06:35 Hgb 13.5 g/dL (13.7-17.5) L 11/04/16 06:35 Hct 38.4 % (40.0-51.0) L 11/04/16 06:35 MCV 86.5 fL (81.5-99.8) 11/04/16 06:35 MCH 30.4 pg (27.9-34.1) 11/04/16 06:35 MCHC 35.2 g/dL (32.4-36.7) 11/04/16 06:35 RDW 12.3 % (11.5-15.2) 11/04/16 06:35 Plt Count 335 10^3/uL (150-400) D 11/04/16 06:35 MPV 9.4 fL (8.7-11.7) 11/04/16 02:00 Neut % (Auto) 76.1 % (39.3-74.2) H 11/04/16 02:00 Lymph % (Auto) 13.1 % (15.0-45.0) L 11/04/16 02:00 Glascock % (Auto) 10.4 % (4.5-13.0) 11/04/16 02:00 Eos % (Auto) 0.0 % (0.6-7.6) L 11/04/16 02:00 Baso % (Auto) 0.2 % (0.3-1.7) L 11/04/16 02:00 Nucleat RBC Rel Count 0.0 % (0.0-0.2) 11/04/16 02:00 Absolute Neuts (auto) 9.91 10^3/uL (1.70-6.50) H 11/04/16 02:00 Absolute Lymphs (auto) 1.71 10^3/uL (1.00-3.00) 11/04/16 02:00 Absolute Monos (auto) 1.36 10^3/uL (0.30-0.80) H 11/04/16 02:00 Absolute Eos (auto) 0.00 10^3/uL (0.03-0.40) L 11/04/16 02:00 Absolute Basos (auto) 0.03 10^3/uL (0.02-0.10) 11/04/16 02:00 Absolute Nucleated RBC 0.00 10^3/uL (0-0.01) 11/04/16 02:00 Immature Gran % 0.2 % (0.0-1.1) 11/04/16 02:00 Immature Gran # 0.03 10^3/uL (0.00-0.10) 11/04/16 02:00 VBG Lactic Acid 1.6 mmol/L (0.7-2.1) D 11/04/16 03:30 Sodium 140 mEq/L (134-144) 11/05/16 03:47 Potassium 3.5 mEq/L (3.5-5.2) 11/05/16 03:47 Chloride 111 mEq/L (97-110) H 11/05/16 03:47 Carbon Dioxide 18 mEq/l (22-31) L 11/05/16 03:47 Anion Gap 11 mEq/L (8-16) 11/05/16 03:47 BUN 13 mg/dL (7-23) 11/05/16 03:47 Creatinine 1.5 mg/dL (0.7-1.3) H 11/05/16 03:47 Estimated GFR 57 11/05/16 03:47 Glucose 102 mg/dL (70-100) H 11/05/16 03:47 Calcium 9.5 mg/dL (8.5-10.4) 11/05/16 03:47 Phosphorus 4.3 mg/dL (2.5-4.5) 11/04/16 02:00 Magnesium 2.1 mg/dL (1.6-2.3) 11/05/16 03:47 Total Bilirubin 1.0 mg/dL (0.1-1.4) 11/04/16 06:35 Conjugated Bilirubin 0.3 mg/dL (0.0-0.5) 11/04/16 02:00 Unconjugated Bilirubin 1.2 mg/dL (0.0-1.1) H 11/04/16 02:00 AST 22 IU/L (17-59) 11/04/16 06:35 ALT 29 IU/L (21-72) 11/04/16 06:35 Alkaline Phosphatase 62 IU/L (38-126) 11/04/16 06:35 Creatine Kinase 85 IU/L (0-224) 11/04/16 06:35 Troponin I < 0.012 ng/mL (0.000-0.034) 11/04/16 02:00 Total Protein 6.7 g/dL (6.3-8.2) D 11/04/16 06:35 Albumin 4.0 g/dL (3.5-5.0) 11/04/16 06:35 Lipase 75 IU/L (23-300) 11/04/16 02:00 Urine Color YELLOW 11/04/16 04:15 Urine Appearance CLEAR 11/04/16 04:15 Urine pH 8.0 (5.0-7.5) H 11/04/16 04:15 Ur Specific [place] 1.033 (1.002-1.030) H 11/04/16 04:15 Urine Protein 1+ (NEGATIVE) H 11/04/16 04:15 Urine Ketones 1+ (NEGATIVE) H 11/04/16 04:15 Urine Blood NEGATIVE (NEGATIVE) 11/04/16 04:15 Urine Nitrate NEGATIVE (NEGATIVE) 11/04/16 04:15 Urine Bilirubin NEGATIVE (NEGATIVE) 11/04/16 04:15 Urine Urobilinogen NEGATIVE EU (0.2-1.0) 11/04/16 04:15 Ur Leukocyte Esterase NEGATIVE (NEGATIVE) 11/04/16 04:15 Urine RBC 1-3 /hpf (0-3) 11/04/16 04:15 Urine WBC 1-3 /hpf (0-3) 11/04/16 04:15 Ur Epithelial Cells NONE SEEN /lpf (NONE-1+) 11/04/16 04:15 Urine Mucus TRACE /lpf (NONE-1+) 11/04/16 04:15 Urine Glucose NEGATIVE (NEGATIVE) 11/04/16 04:15 Salicylates < 1.0 mg/dL (2.0-20.0) L 11/04/16 02:00 Urine Opiates Screen NEGATIVE (NEGATIVE) 11/04/16 04:15 Acetaminophen < 10 mcg/mL (10-30) L 11/04/16 02:00 Urine Barbiturates NEGATIVE (NEGATIVE) 11/04/16 04:15 Ur Phencyclidine Scrn NEGATIVE (NEGATIVE) 11/04/16 04:15 Ur Amphetamine Screen NEGATIVE (NEGATIVE) 11/04/16 04:15 U Benzodiazepines Scrn NON-NEGATIVE (NEGATIVE) H 11/04/16 04:15 Urine Cocaine Screen NON-NEGATIVE (NEGATIVE) H 11/04/16 04:15 U Marijuana (THC) Screen NON-NEGATIVE (NEGATIVE) H 11/04/16 04:15 Ethyl Alcohol < 10 mg/dL (0-10) 11/04/16 02:00
[2016-11-05] MEDS ORDERED: POTASSIUM CL 20 MEQ TAB PO ONE (11:58)
[2016-11-05] MEDS: 1/2 NS 1,000 ML IV SCH (12:36)
--- NOTE | 2016-11-05 13:40 | HOSPPROG ---
Hospitalist Progress Note Assessment/Plan: # acute toxic encephalopathy- suspected secondary to polysubstance abuse and withdrawal- markedly improved today A&Ox2.5 Urine drug screen positive for cocaine, marijuana, benzodiazepine - known recent use of higher dose narcotics oxygen saturations 98% on room air - can clear sitter today - continue RN monitoring - p.r.n. Ativan for agitation # polysubstance abuse- patient less encephalopathic today seems to have some insight into how his polysubstance use led to his hospitalization - can continue education and provide resources for discharge # acute kidney injury- presumed secondary to dehydration- creatinine 1.4 -> 1.2 up this am 1.5 suspect 2/2 hypovolemia at presentation - CK < 100 at presentation however n/ v and poor PO prior to and during hospital stay - order US kidneys - consulting renal - continue IV fluids - recheck in a.m. # subacute right ankle dislocation- ankle xray (personally reviewed and interpreted) distal fracture and dislocation- status post surgical intervention - nonweightbearing on his right foot- has crutches bedside - boot in place - avoiding pain medications as able # prophylaxis Lovenox # diet regular # disposition greater than 2 midnights as requiring high-level monitoring and supportive care I have discussed the case with the RN we can discontinue sitter today and continue to monitoring improving encephalopathy Subjective: Minimal right ankle pain Objective: Vital Signs Temp Pulse Resp BP Pulse Ox 37.1 C 62 15 121/70 H 98 11/05/16 12:00 11/05/16 12:00 11/05/16 12:00 11/05/16 12:00 11/05/16 12:00 Laboratory Results 11/04/16 06:35 11/05/16 03:47 11/04/16 11/05/16 11/06/16 05:59 05:59 05:59 Intake Total 5869 240 Output Total 2250 Balance 3619 240 - Physical Exam Constitutional: appears nourished Eyes: anicteric sclera Ears, Nose, Mouth, Throat: moist mucous membranes Cardiovascular: regular rate and rhythym Respiratory: no respiratory distress, no rales or rhonchi Gastrointestinal: normoactive bowel sounds, soft, non-tender abdomen Genitourinary: no bladder fullness Skin: warm Musculoskeletal: other (Right foot boot), No asymmetric calves Neurologic: No AAOx3 Psychiatric: interacting appropriately, anxious Lymph, Heme, Immunologic: no cervical LAD ICD10 Worksheet Patient Problems: Problems Problem Status Onset Altered mental status Acute Dehydration Acute Encephalopathy acute Acute Opiate withdrawal Acute Polysubstance abuse Acute
--- NOTE | 2016-11-05 16:56 | ASMTCMCOM ---
CM Note CM Note Notes: Case Management Note: Important phone numbers: Mom Phyllis [phone] girlfriend Bryson [phone] Met w/pt and RICHARD Velazquez. Discussed treatment options for drug use. Case Management left VM w/pt permission on Phyllis's phone requesting insurance information. Pt is covered under [employer] insurance through [employer]. Case Management to connect pt with intensive outpatient drug rehab or inpt drug rehab per patient through [employer]. Pt states "that was the last time I'm using". When asked about strategies to stay clean, pt reports that both of his dogs are service emotional support animals and he will have them by his side 09/09. Denies prior counseling. Denies prior psychiatric support or assessment. Reports friends have attempted sobriety but have been unsuccessful. States "I do not have an addictive personality, I quit smoking, I quit my e cigs, I'll quit drugs". Pt is receptive and requested exploration of options through [employer] for treatment. Provided handout for [facility]. Pt reports using drugs in the past, cocaine most recently used in February. Reports daily THC use. Reports prescription for travel anxiety provided by MD that he could not recall, states it was an MD from [facility] "in another building". Pt unable to follow conversation, confusing names and locations. When asked about pain level, he stated "my girlfriend will bring me something for pain" RN explained importance of taking only the medications provided by the hospital. Pt reports living with girlfriend Bryson and room mate Tereso. Friends Reynaldo and Mayra live out of a van in [place] and often visit his apartment. These friends were present and consumed drugs the same night pt was admitted to hospital. 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 Reports snowboarding as main draw for moving to [place] from [place]. Case Management to resume case tomorrow and follow up with Mom for information re: insurance drug treatment options. Awaiting results of PT eval to determine pt d/c needs re: ankle. 11/04/2016 Case Management Note: C/M consult requested for pt once he clears. He is currently encephalopathic due to suspect polysubstance abuse. C/M to follow. Date Signed: 11/05/2016 04:51 PM Electronically Signed By:Mague Hope RN
[2016-11-05] MEDS: ENOXAPARIN 40 MG/0.4 ML SYR SC SCH (17:48)
[2016-11-05 18:18] LABS: COLOR PALE YELLOW; LEUKOCYTE ESTERASE,URINE NEGATIVE (NEGATIVE); NITRITE,URINE NEGATIVE (NEGATIVE)
[2016-11-05 18:26] LABS: RANDOM URINE PROTEIN 13 mg/dL (0-11)
[2016-11-05] MEDS: LORazepam 1 MG TAB PO PRN (21:57)
[2016-11-06] MEDS: 1/2 NS 1,000 ML IV SCH (03:06)
[2016-11-06 05:33] LABS: ANION GAP 10 mEq/L (8-16); CALCIUM 9.7 mg/dL (8.5-10.4); CARBON DIOXIDE 21 mEq/l (22-31); CHLORIDE 108 mEq/L (97-110); CREATININE 1.3 mg/dL (0.7-1.3); GLOMERULAR FILTRATION RATE > 60; GLUCOSE 91 mg/dL (70-100); MAGNESIUM 1.9 mg/dL (1.6-2.3); POTASSIUM 3.6 mEq/L (3.5-5.2); SODIUM 139 mEq/L (134-144)
--- NOTE | 2016-11-06 07:24 | SOAPPROG ---
SOAP Progress Note Assessment/Plan: Assessment: 1. JOYA. Appears to have had ATN related to N/V/vol depletion as well as vasoconstriction from cocaine abuse. Renal u/s, UA unremarkable. Good uop, creat back to normal. Can d/c IVF. Encourage good po intake. Discussed need to avoid cocaine, take meds only as prescribed by doctor. 2. Ankle fracture. See above. Will sign off. Please call if there are further questions. Plan: 11/06/16 07:23 Subjective: Denies any pain or other complaints this am. Wants to eat. Objective: Vital Signs Temp Pulse Resp BP Pulse Ox 36.5 C 76 16 126/67 H 96 11/06/16 03:01 11/06/16 03:01 11/06/16 03:01 11/06/16 03:01 11/06/16 03:01 Laboratory Results 11/06/16 03:51 11/05/16 11/06/16 11/07/16 05:59 05:59 05:59 Intake Total 1200 Output Total 800 Balance 400 In bed, comfortable young wm RRR, no m/g/r CTAB Abdom soft, nt Cast on R ankle, no LLE edema ICD10 Worksheet Patient Problems: Problems Problem Status Onset Altered mental status Acute Dehydration Acute Opiate withdrawal Acute Encephalopathy acute Acute Polysubstance abuse Acute
[2016-11-06] MEDS: ENOXAPARIN 40 MG/0.4 ML SYR SC SCH (08:11)
--- NOTE | 2016-11-06 15:05 | ASMTCMCOM ---
CM Note CM Note Notes: CM spoke w/ MomPhyllis. She is flying in from [place] today. Mom would like pt to seek substance abuse treatment. PT/OT are recommending inpatient rehab. Dr. Hernandez put in an order for inpatient rehab. CM spoke w/ Marichuy from inpatient rehab and declined. CM met w/ pt and friends for dispo planning. Pt is not interested in substance abuse tx at this time. Pt would like HC; PT/OT/RN. Pt is uncertain who his PCP is and will have friends and girlfriend call CM back w/ that info. CM to follow. Date Signed: 11/06/2016 03:04 PM Electronically Signed By:KIM Ayala
--- NOTE | 2016-11-06 15:18 | HOSPPROG ---
Hospitalist Progress Note Assessment/Plan: # acute toxic encephalopathy- suspected secondary to polysubstance abuse and withdrawal- again slightly improved today A&Ox3 Urine drug screen positive for cocaine, marijuana, benzodiazepine - known recent use of higher dose narcotics oxygen saturations 98% on room air - sitter today as had increased confusion overnight - continue RN monitoring - p.r.n. Ativan for agitation # polysubstance abuse- patient less encephalopathic today seems to have some insight into how his polysubstance use led to his hospitalization - can continue education and provide resources for discharge - family planning on arranging inpatient drug treatment # acute kidney injury- presumed secondary to ATN - suspect 2/2 hypovolemia and vasoconstriction with cocaine - creatinine 1.5 -> 1.3 US kidney (reviewed) normal - renal following - taking good PO can dc IV fluids - recheck in a.m. # subacute right ankle dislocation- ankle xray (personally reviewed and interpreted) distal fracture and dislocation- status post surgical intervention - nonweightbearing on his right foot- has crutches bedside - boot in place - avoiding pain medications as able # prophylaxis Lovenox # diet regular # disposition greater than 2 midnights as requiring high-level monitoring and supportive care I have discussed the case with the CM - planning for dispo with parents tomorrow for drug treatment Subjective: feeling better Objective: Vital Signs Temp Pulse Resp BP Pulse Ox 36.9 C 55 L 16 147/81 H 98 11/06/16 11:02 11/06/16 11:02 11/06/16 11:02 11/06/16 11:02 11/06/16 11:02 Laboratory Results 11/06/16 03:51 11/05/16 11/06/16 11/07/16 05:59 05:59 05:59 Intake Total 1200 2487 Output Total 800 700 Balance 400 1787 - Physical Exam Constitutional: no apparent distress Eyes: anicteric sclera Ears, Nose, Mouth, Throat: moist mucous membranes Cardiovascular: regular rate and rhythym Respiratory: no respiratory distress Gastrointestinal: normoactive bowel sounds Genitourinary: no bladder fullness Skin: warm, normal color Musculoskeletal: No asymmetric calves Neurologic: AAOx3 Psychiatric: interacting appropriately Lymph, Heme, Immunologic: no cervical LAD ICD10 Worksheet Patient Problems: Problems Problem Status Onset Altered mental status Acute Dehydration Acute Encephalopathy acute Acute Opiate withdrawal Acute Polysubstance abuse Acute
[2016-11-07 06:05] LABS: ANION GAP 13 mEq/L (8-16); CALCIUM 9.6 mg/dL (8.5-10.4); CARBON DIOXIDE 20 mEq/l (22-31); CHLORIDE 110 mEq/L (97-110); CREATININE 1.4 mg/dL (0.7-1.3); GLOMERULAR FILTRATION RATE > 60; GLUCOSE 85 mg/dL (70-100); MAGNESIUM 1.9 mg/dL (1.6-2.3); POTASSIUM 3.7 mEq/L (3.5-5.2); SODIUM 143 mEq/L (134-144)
[2016-11-07] MEDS: ENOXAPARIN 40 MG/0.4 ML SYR SC SCH (08:36)
[2016-11-07 08:48] VITALS: BP 138/82; PULSE 56; RESP 12; TEMP 97.6; O2SAT 98
--- NOTE | 2016-11-07 12:38 | ASDISCHSUM ---
Discharge Information Plan Status:Home with Home Health Medically Cleared to Leave:11/07/2016 Discharge Date:11/07/2016 11:39 AM CM D/C Disposition:Home Health Service PENDING SALE TO [facility] D/C Disposition:Home, Routine, Self-Care Projected Discharge Date:11/07/2016 12:00 AM Transportation at D/C: Discharge Delay Reason: Follow-Up Date:11/07/2016 12:00 AM Discharge Slot: Final Diagnosis: Placement Information Patient Contact Information Contact Name:ART Relationship: Address: Home Phone: Work Phone: City: Alternate Phone: State/Zip Code: Email: Financial Information Financial Class:HMO and PPO Plans Primary Plan Desc:[employer] Primary Plan Number:[id number] Secondary Plan Desc: Secondary Plan Number: Assessment Information [facility] CM Progress Note CM Note CM Note Notes: C/M consult requested for pt once he clears. He is currently encephalopathic due to suspect polysubstance abuse. C/M to follow. Date Signed: 11/04/2016 05:03 PM Electronically Signed By:Kylie Gamboa LCSW [facility] CM Progress Note CM Note CM Note Notes: Case Management Note: Important phone numbers: Erwin Ferguson [phone] girlfriend Bryson [phone] Met w/pt and RICHARD Velazquez. Discussed treatment options for drug use. Case Management left VM w/pt permission on Phyllis's phone requesting insurance information. Pt is covered under [employer] insurance through [employer]. Case Management to connect pt with intensive outpatient drug rehab or inpt drug rehab per patient through [facility]. Pt states "that was the last time I'm using". When asked about strategies to stay clean, pt reports that both of his dogs are service emotional support animals and he will have them by his side 09/09. Denies prior counseling. Denies prior psychiatric support or assessment. Reports friends have attempted sobriety but have been unsuccessful. States "I do not have an addictive personality, I quit smoking, I quit my e cigs, I'll quit drugs". Pt is receptive and requested exploration of options through [employer] [place] [employer] for treatment. Provided handout for [facility]. Pt reports using drugs in the past, cocaine most recently used in February. Reports daily THC use. Reports prescription for travel anxiety provided by MD that he could not recall, states it was an MD from [facility] "in another building". Pt unable to follow conversation, confusing names and locations. When asked about pain level, he stated "my girlfriend will bring me something for pain" RN explained importance of taking only the medications provided by the hospital. Pt reports living with girlfriend Bryson and room mate Tereso. Friends Reynaldo and Mayra live out of a van in [place] and often visit his apartment. These friends were present and consumed drugs the same night pt was admitted to hospital. 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 Reports snowboarding as main draw for moving to [place] from [place]. Case Management to resume case tomorrow and follow up with Mom for information re: insurance drug treatment options. Awaiting results of PT eval to determine pt d/c needs re: ankle. 11/04/2016 Case Management Note: C/M consult requested for pt once he clears. He is currently encephalopathic due to suspect polysubstance abuse. C/M to follow. Date Signed: 11/05/2016 04:51 PM Electronically Signed By:Mague Hope RN [facility] CM Progress Note CM Note CM Note Notes: CM spoke w/ MomPhyllis. She is flying in from [place] today. Mom would like pt to seek substance abuse treatment. PT/OT are recommending inpatient rehab. Dr. Hernandez put in an order for inpatient rehab. CM spoke w/ Marichuy from inpatient rehab and declined. CM met w/ pt and friends for dispo planning. Pt is not interested in substance abuse tx at this time. Pt would like HC; PT/OT/RN. Pt is uncertain who his PCP is and will have friends and girlfriend call CM back w/ that info. CM to follow. Date Signed: 11/06/2016 03:04 PM Electronically Signed By:KIM Ayala [facility] CM Progress Note CM Note CM Note Notes: Pt is being discharged today. CM met w/ pt, mom and gf for dispo planning. CM spoke w/ [facility] scheduling and obtained a new PCP appt. CM informed cancer registry coordinator that pt needs orders to be writen for HC; PT/OT/RN, if possible. CM also notified cancer registry coordinator that pt needs a referral to [facility] for behavioral health services. Pt is scheduled to see Dr. Swan on 11/21/16 at 1PM. CM informed pt and family of appointment. CM notified [facility] of new patient appointment w/ Dr. Swan in hopes to have HC established. CM available for changes. Date Signed: 11/07/2016 12:37 PM Electronically Signed By:KIM Ayala Intervention Information
--- NOTE | 2016-11-07 12:38 | ASMTCMCOM ---
CM Note CM Note Notes: Pt is being discharged today. CM met w/ pt, mom and gf for dispo planning. CM spoke w/ [facility] scheduling and obtained a new PCP appt. CM informed community service officer coordinator that pt needs orders to be writen for HC; PT/OT/RN, if possible. CM also notified community service officer coordinator that pt needs a referral to [facility] for behavioral health services. Pt is scheduled to see Dr. Swan on 11/21/16 at 1PM. CM informed pt and family of appointment. CM notified [facility] of new patient appointment w/ Dr. Swan in hopes to have HC established. CM available for changes. Date Signed: 11/07/2016 12:37 PM Electronically Signed By:KIM Ayala
--- NOTE | 2016-11-07 14:14 | PDIAF ---
- Diagnosis Diagnosis: toxic encephalopathy Code Status: Full Code - Medication Management Discharge Medications: Medications to Continue on Transfer Acetaminophen [Tylenol 325mg (*)] 650 mg PO Q4HRS PRN tab 11/07/16 [Last Taken Unknown] Discharge Medications: Refer to the Discharge Home Medication list for PRN reason. - Orders Services needed: Home Care, Physical Therapy, Occupational Therapy, Speech Language Pathologist Home Care Face to Face: I certify that this patient was under my care and that I had the required [id number] encounter meeting the encounter requirements on the discharge day. My findings support the fact that the patient is homebound as defined in Home Care Face to Face Continued: CMS Chapter 7 Medicare Benefits Manual 30.1.1 , The condition of the patient is such that there exists a normal inability to leave home and consequently, leaving home would require a considerable and taxing effort. Diet Recommendation: no restrictions on diet Diet Texture: Regular Texture Diet - Follow Up Care Current Providers and Referrals: NONE *PRIMARY CARE P,. [Unknown] - As per Instructions (Dr. Swan: 11/21/16 @ [address] [place] [address] Family Medicine New PCP appointment) Lizabeth Adams MD [Medical Doctor] -
--- NOTE | 2016-11-07 22:22 | GDS ---
[f rep st] DISCHARGE SUMMARY DISCHARGE DIAGNOSES: 1. Acute polysubstance intoxication/withdrawal. 2. Acute toxic encephalopathy secondary to withdrawal. 3. Acute kidney injury, presumed secondary to acute tubular necrosis and cocaine vasospasm. 4. Subacute right ankle dislocation. HISTORY OF PRESENT ILLNESS: This is a 26-year-old male, who presents with acute confusion. For deta ils of patient's initial presentation, please see the history and physical dated 11/04/2016. CONSULTATIVE SERVICES: Nephrology. PROCEDURES: On 11/05/2016, patient had an ultrasound of the kidneys that was normal. On 11/04/2016, patient had a noncontrast CT of the head, which was normal. HOSPITAL COURSE BY ISSUE: 1. Acute toxic encephalopathy. Patient was quite confused after the first 72 hours of his hospital stay thought secondary to initially acute intoxication, then withdrawal. Patient's toxicology screen s were positive for marijuana, benzodiazepine, cocaine, and he had a known history of previous high-d ose usage of narcotics. Patient was monitored closely as he went through the initial stages of withd alex. Mental status ultimately cleared over the course of 72 hours. Patient was seen by PT, OT, Sp eech Therapy. He is being discharged with his mom and outpatient home health for ongoing rehabilitat ion related to his polysubstance abuse. 2. Subacute right ankle dislocation and surgical repair. Patient remain nonweightbearing during his hospital stay. He was discharged on Tylenol only for pain control post disposition. 3. Acute kidney injury, presumed secondary to ATN with hypovolemia and presumed cocaine vasospasm. Patient received hydration and had mild improvement in his renal function. Creatinine was 1.4 on the day of disposition. We expect a full recovery. We have asked the patient follow in the outpatient setting with Nephrology for lab followup. He is to maintain hydration post discharge and avoid ibupr ofen and NSAIDs for pain control until seen by Nephrology and cleared to use. MEDICATIONS: At the time of disposition/discharge, please reference med rec printed on 11/07/2016. APPOINTMENTS: 1. With Nephrology in 1 month's time. 2. With his newly established outpatient provider in the next 2-4 weeks for post disposition followu p and support related to substance abuse. I spent greater than 30 minutes in the planning and coordination of this discharge. /[id number]/MODL
== END 2016-11-07 11:39 | disposition home or self-care (01) | DRG 917 ==
LOC: INTOOBSV 03:23 → F2W 07:40 → OBSVTOIN 11-05 16:20
PROVIDERS: ADMIT Internal Medicine; ATTEND Internal Medicine
DX: T40.5X1A Poisoning by cocaine, accidental (unintentional), initial encounter (principal); T42.4X1A Poisoning by benzodiazepines, accidental (unintentional), initial encounter; G92 Toxic encephalopathy; F14.23 Cocaine dependence with withdrawal; F13.239 Sedative, hypnotic or anxiolytic dependence with withdrawal, unspecified; N17.9 Acute kidney failure, unspecified; E87.6 Hypokalemia; E83.42 Hypomagnesemia; R94.31 Abnormal electrocardiogram [ECG] [EKG]; Z87.891 Personal history of nicotine dependence
CPT/HCPCS: 80305; 96374; 97116-GP; 97162-GP; 97166-GO; 97530-GO; 97530-GP; 97535-GO; G0378; G0480; J1650; J2060; J2405

== ENCOUNTER → 2017-04-19 | Outpatient (CLI) | payer OTHER | LOC: BMCIMAGING 11:05 | PROVIDERS: ATTEND Family Medicine | DX: M25.571 Pain in right ankle and joints of right foot (principal); Y93.02 Activity, running; Z98.1 Arthrodesis status ==